=== PATIENT | male | born 1970 | race Caucasian/White ===

== ENCOUNTER 2018-01-25 15:38 | Outpatient (REF) | payer MEDICAID, SELFPAY ==
[2018-01-25 21:06] LABS: Abs Immature Grans 0.02 k/cumm (0.0-0.09); Absolute Basophil Count 0.04 k/cumm (0.0-0.2); Absolute Lymphocyte Count 2.55 k/cumm (1.2-3.4); Absolute Monocyte Count 0.54 k/cumm (0.11-0.7); Absolute Neutrophil Count 5.69 k/cumm (1.2-6.7); Basophils % 0.4; Eosinophils % 2.2; HCT 45.2 % (40.0-50.0); HGB 15.6 g/dL (13.5-17.5); Immature Grans % 0.2; Lymphocytes % 28.2; Mean Corp. HGB Concentration 34.5 g/dL (32.0-36.0); Mean Corpuscular Hemoglobin 33.9 pg (27.0-33.0); Mean Corpuscular Volume 98.3 fL (80-95); Mean Platelet Volume 10.7 fL (8.0-11.0); Platelet Count 277 x1000/uL (130-400); RBC Distribution Width 13.3 % (11.8-14.1); White Blood Cell Count 9.04 k/cumm (4.4-10.8)
[2018-01-25 21:19] LABS: Iron 156 ug/dL (50-175); Total Iron Binding Capacity 385 ug/dL (250-450); Transferrin Sat 41 % (20-55)
[2018-01-25 21:40] LABS: Anion Gap 9.9 mmol/L (3-11); BUN 12 mg/dL (7-18); CO2 27.1 mmol/L (21.0-32.0); Chloride 103 mmol/L (98-107); Ferritin 171 ng/mL (8-388); Glucose 79 mg/dL (70-100); Potassium 4.1 mmol/L (3.5-5.1); Sodium 140 mmol/L (136-145); TSH (W/Ref FT4) 2.66 uIU/mL (0.358-3.74)
[2018-01-25 21:59] LABS: NT-proBNP 13 pg/mL
[2018-01-26 12:54] LABS: Calcium 9.1 mg/dL (8.5-10.1)
[2018-01-27 11:16] LABS: Hepatitis C Ab w Rflx HCV PCR Negative (NEGAT)
== END 2018-01-25 15:58 ==
LOC: NCHCN 15:38
PROVIDERS: PCP Nurse Practitioner Family; Visit Provider Nurse Practitioner Family
DX: F41.8 Other specified anxiety disorders (principal); R42 Dizziness and giddiness; K30 Functional dyspepsia; R06.01 Orthopnea; K76.0 Fatty (change of) liver, not elsewhere classified; M54.5 Low back pain; F17.209 Nicotine dependence, unspecified, with unspecified nicotine-induced disorders; Z11.59 Encounter for screening for other viral diseases
CPT/HCPCS: 80048; 86803; 82728; 83540; 83550; 83880; 84443; 85025

== ENCOUNTER 2018-05-05 10:48 | Outpatient (REF) | payer MEDICAID, SELFPAY ==
[2018-05-05 13:04] LABS: Abs Immature Grans 0.03 k/cumm (0.0-0.09); Absolute Basophil Count 0.04 k/cumm (0.0-0.2); Absolute Lymphocyte Count 2.19 k/cumm (1.2-3.4); Absolute Monocyte Count 0.55 k/cumm (0.11-0.7); Absolute Neutrophil Count 6.31 k/cumm (1.2-6.7); Basophils % 0.4; Eosinophils % 1.1; HCT 46.6 % (40.0-50.0); HGB 16.4 g/dL (13.5-17.5); Immature Grans % 0.3; Lymphocytes % 23.8; Mean Corp. HGB Concentration 35.2 g/dL (32.0-36.0); Mean Corpuscular Hemoglobin 34.9 pg (27.0-33.0); Mean Corpuscular Volume 99.1 fL (80-95); Mean Platelet Volume 10.6 fL (8.0-11.0); Neutrophils % 68.4; Platelet Count 243 x1000/uL (130-400); RBC Distribution Width 12.3 % (11.8-14.1); White Blood Cell Count 9.22 k/cumm (4.4-10.8)
[2018-05-05 13:09] LABS: Glucose 106 mg/dL (70-100)
== END 2018-05-05 11:08 ==
LOC: NCHCN 10:48
PROVIDERS: PCP Nurse Practitioner Family; Visit Provider Nurse Practitioner Family
DX: F10.10 Alcohol abuse, uncomplicated (principal); F41.8 Other specified anxiety disorders
CPT/HCPCS: 82947; 85025

== ENCOUNTER 2018-08-18 21:48 | Outpatient (REF) | payer MEDICAID, SELFPAY ==
[2018-08-18 22:29] LABS: ALT 32 U/L (12-78); AST 16 U/L (15-37); Albumin 3.7 g/dL (3.4-5.0); Alkaline Phosphatase 83 U/L (46-116); Anion Gap 10.7 mmol/L (3-11); BUN 9 mg/dL (7-18); Bilirubin, Total 0.2 mg/dL (0.2-1.0); CO2 27.3 mmol/L (21.0-32.0); CREATININE 1.04 mg/dL (0.70-1.30); Calcium 9.2 mg/dL (8.5-10.1); Chloride 102 mmol/L (98-107); Glucose 88 mg/dL (70-100); Potassium 4.1 mmol/L (3.5-5.1); Sodium 140 mmol/L (136-145); Total Protein 6.9 g/dL (6.4-8.2)
[2018-08-22 11:24] LABS: Hepatitis A Antibody IgM Negative (NEGAT); Hepatitis B Core Antibody Negative (NEGAT); Hepatitis B surface Ag Negative (NEGAT); Hepatitis C Ab w Rflx HCV PCR Negative (NEGAT)
== END 2018-08-18 22:08 ==
LOC: NCHCN 21:48
PROVIDERS: PCP Nurse Practitioner Family; Visit Provider Nurse Practitioner Family
DX: R51 Headache (principal); F17.209 Nicotine dependence, unspecified, with unspecified nicotine-induced disorders; F10.10 Alcohol abuse, uncomplicated; F41.8 Other specified anxiety disorders; K76.0 Fatty (change of) liver, not elsewhere classified
CPT/HCPCS: 80053; 86704; 86709; 86803; 87340

== ENCOUNTER 2018-08-31 01:37 | Outpatient (CLI) | payer MEDICAID, SELFPAY ==
--- NOTE | 2018-08-31 08:10 | DI.US_ITS ---
SYMPTOM/DIAGNOSIS: FATTY LIVER, K76.0, ALCOHOL ABUSE, F10.10 ABDOMEN ULTRASOUND: Comparison is made with 12/25/13. The liver appears enlarged and shows increased echogenicity and decrease through transmission, consistent with hepatic steatosis. The gallbladder is unremarkable, without evidence of stones or wall thickening. No focal liver mass is seen. The pancreas was not well seen. The kidneys are normal in size and parenchymal thickness and show no evidence of hydronephrosis. No ascites is seen. The aorta is normal in diameter. The spleen is normal in size. IMPRESSION: Hepatic steatosis. No liver mass or biliary dilatation.
== END 2018-08-31 01:57 ==
PROVIDERS: PCP Nurse Practitioner Family; Visit Provider Nurse Practitioner Family
DX: K76.0 Fatty (change of) liver, not elsewhere classified (principal); F10.10 Alcohol abuse, uncomplicated
CPT/HCPCS: 76700

== ENCOUNTER 2019-08-04 19:25 | Outpatient (CLI) | payer MEDICAID, SELFPAY ==
[2019-08-05 17:34] LABS: COVID-19 RT-PCR UVMMC Result Negative (Negative)
== END 2019-08-04 19:45 ==
PROVIDERS: PCP Nurse Practitioner Family; Visit Provider Physician Assistant
DX: R05 Cough (principal)
CPT/HCPCS: U0003

== ENCOUNTER 2020-03-29 17:48 | Outpatient (REF) | payer MEDICAID, SELFPAY ==
[2020-03-29 21:23] LABS: Abs Immature Grans 0.05 10^3/uL (0.0-0.06); Absolute Basophil Count 0.07 10^3/uL (0.0-0.2); Absolute Monocyte Count 0.82 10^3/uL (0.1-0.8); Absolute Neutrophil Count 7.38 10^3/uL (1.2-6.7); Basophils % 0.6; Eosinophils % 2.5; HCT 47.5 % (40.0-50.0); HGB 15.6 g/dL (13.5-17.5); Immature Grans % 0.4; Lymphocytes % 27.2; MCH 32.4 pg (27.0-33.0); MCHC 32.8 % (32.0-36.0); MCV 98.8 fL (80-95); MPV 11.5 fL (8.0-11.0); Monocytes % 6.9; Neutrophils % 62.4; Nucleated RBC 0 %; Platelet Count 265 10^3/uL (130-400); RBC 4.81 10^6/uL (4.36-5.78); RDW 12.4 % (11.8-14.1); RDW-SD 45.1 fL; WBC 11.82 10^3/uL (4.4-10.8)
[2020-03-29 21:24] LABS: Absolute Lymphocyte Count 3.22 10^3/uL (1.2-3.4)
[2020-03-29 21:44] LABS: ALT 35 U/L (16-63); AST 16 U/L (15-37); Alkaline Phosphatase 85 U/L (46-116); Anion Gap 8.5 mmol/L (3-11); BUN 19 mg/dL (7-18); Bilirubin, Total 0.2 mg/dL (0.2-1.0); CO2 27.5 mmol/L (21.0-32.0); CREATININE 0.99 mg/dL (0.70-1.30); Calculated LDL 124 mg/dL (<100); Chloride 104 mmol/L (98-107); Cholesterol 192 mg/dL (<200); Glucose 70 mg/dL (74-106); HDL Cholesterol 31 mg/dL (40-60); Potassium 4.4 mmol/L (3.5-5.1); Sodium 140 mmol/L (136-145); TSH (W/Ref FT4) 1.99 uIU/mL (0.36-3.74); Triglyceride 186 mg/dL (<150)
[2020-04-01 10:00] LABS: HIV-1/2 Ag & Ab Screen Negative (Negative)
[2020-04-01 10:58] LABS: Syphilis Serology (RPR) Negative (Negative)
[2020-04-01 11:28] LABS: Hepatitis A Antibody IgM Negative (Negative); Hepatitis B Core Antibody Negative (Negative); Hepatitis B surface Ag Negative (Negative); Hepatitis C Ab w Rflx HCV PCR Negative (Negative)
== END 2020-03-29 18:08 ==
LOC: NCHCN 17:48
PROVIDERS: PCP Nurse Practitioner Family; Visit Provider Nurse Practitioner Family
DX: R20.2 Paresthesia of skin (principal); R11.10 Vomiting, unspecified; R07.9 Chest pain, unspecified; F17.209 Nicotine dependence, unspecified, with unspecified nicotine-induced disorders; K76.0 Fatty (change of) liver, not elsewhere classified; Z11.4 Encounter for screening for human immunodeficiency virus [HIV]; Z11.59 Encounter for screening for other viral diseases
CPT/HCPCS: 80053; 80061; 86704; 86709; 86803; 87340; 87389; 84443; 85025; 86592

== ENCOUNTER 2021-04-16 15:25 | Outpatient (REF) | payer MEDICAID, SELFPAY ==
[2021-04-18 16:31] LABS: COVID-19 RT-PCR UVMMC Result Negative (Negative)
== END 2021-04-16 15:26 | disposition home or self-care (01) ==
LOC: LBN 15:25
PROVIDERS: PCP Nurse Practitioner Family; Visit Provider Physician Assistant Medical
DX: Z20.822 Contact with and (suspected) exposure to COVID-19 (principal); J32.8 Other chronic sinusitis
CPT/HCPCS: U0003

== ENCOUNTER 2022-06-10 01:41 | Outpatient (CLI) | payer OTHER, MEDICAID, SELFPAY ==
--- NOTE | 2022-06-10 08:00 | DI.RAD_ITS ---
Exam(s) XR LUMBAR SPINE COMPLETE EXAM: XR LUMBAR SPINE COMPLETE CLINICAL HISTORY: assess bony alignment,CHRONIC NECK AND BACK PAIN,M54.2,M54.9. TECHNIQUE: 2D digital imaging was performed of the lumbar spine. Five images were obtained. AP, la teral, right oblique, left oblique and L5-S1 spot views were obtained. COMPARISON: CR ABD FLAT UPRIGHT PA CHEST from 03/15/2014 FINDINGS: BONES: No fracture or destructive lesion. There are small endplate osteophytes. Mild degenerative ch anges of the facets are seen at L5-S1. DISKS: Intervertebral disc spaces are maintained. ALIGNMENT: Lumbar spinal alignment is within normal limits. No spondylolysis or spondylolisthesis. SOFT TISSUE: Atherosclerosis. IMPRESSION: Mild lumbar spondylosis. DATA REPOSITORY: RADIATION DOSE DELIVERED:
--- NOTE | 2022-06-10 08:00 | DI.RAD_ITS ---
Exam(s) XR CHEST 2V PA LATERAL EXAM: XR CHEST 2V PA LATERAL CLINICAL HISTORY: CHRONIC COUGH SINCE COVID, r05.3,?? NEW PROCESS TECHNIQUE: 2D digital imaging was performed of the chest. Three images were obtained. PA and later al views were obtained. COMPARISON: CR CHEST 2 VIEWS PA,LAT from 08/30/2017 FINDINGS: MEDIASTINUM: Normal. HEART: Normal. PULMONARY VASCULATURE: Normal. LUNGS: Clear. PLEURAL SPACE: No pleural effusion or pneumothorax. BONE:Within normal limits for the patient's age. OTHER FINDINGS:Normal. IMPRESSION: No acute pulmonary findings. DATA REPOSITORY: RADIATION DOSE DELIVERED:
== END 2022-06-10 02:01 ==
PROVIDERS: PCP Nurse Practitioner Adult Health; Visit Provider Nurse Practitioner Adult Health
DX: R05.3 Chronic cough (principal); M54.59 Other low back pain; M47.816 Spondylosis without myelopathy or radiculopathy, lumbar region; Z87.891 Personal history of nicotine dependence
CPT/HCPCS: 71046; 72110

== ENCOUNTER 2022-06-17 02:42 | Outpatient (CLI) | payer OTHER, MEDICAID, SELFPAY ==
[2022-06-17 08:24] LABS: Abs Immature Grans 0.03 10^3/uL (0.0-0.06); Absolute Basophil Count 0.08 10^3/uL (0.0-0.2); Absolute Lymphocyte Count 2.54 10^3/uL (1.2-3.4); Absolute Monocyte Count 0.59 10^3/uL (0.1-0.8); HCT 46.1 % (40.0-50.0); HGB 15.2 g/dL (13.5-17.5); Immature Grans % 0.4; Lymphocytes % 31.6; MCV 97 fL (80-95); Monocytes % 7.3; Neutrophils % 54.7; Platelet Count 291 10^3/uL (130-400); RBC 4.75 10^6/uL (4.36-5.78); RDW 12.4 % (11.8-14.1); RDW-SD 44.5 fL; WBC 8.04 10^3/uL (4.4-10.8)
[2022-06-17 12:08] LABS: ALT 35 U/L (16-63); AST 17 U/L (15-37); Alkaline Phosphatase 90 U/L (46-116); Anion Gap 7.2 mmol/L (3-11); BUN 11 mg/dL (7-18); Bilirubin, Total 0.3 mg/dL (0.2-1.0); CO2 29.8 mmol/L (21.0-32.0); CREATININE 1.2 mg/dL (0.70-1.30); Calcium 9.4 mg/dL (8.5-10.1); Calculated LDL 133 mg/dL (<100); Chloride 106 mmol/L (98-107); Cholesterol 196 mg/dL (<200); Estimated GFR 72.31 (mL/min/1.73m2); Folate 15.8 ng/mL (8.6-20.0); Glucose 115 mg/dL (74-106); HDL Cholesterol 40 mg/dL (40-60); Potassium 4.3 mmol/L (3.5-5.1); Sodium 143 mmol/L (136-145); Total Protein 7.5 g/dL (6.4-8.2); Triglyceride 119 mg/dL (<150); Vitamin B12 656 pg/mL (193-986)
[2022-06-18 10:11] LABS: HIV-1/2 Ag & Ab Screen Negative (Negative)
[2022-06-18 10:38] LABS: Hepatitis C Ab w Rflx HCV PCR Negative (Negative)
== END 2022-06-17 02:43 | disposition home or self-care (01) ==
LOC: LBO 02:42
PROVIDERS: PCP Nurse Practitioner Adult Health; Visit Provider Nurse Practitioner Adult Health
DX: F10.91 Alcohol use, unspecified, in remission (principal); G47.00 Insomnia, unspecified; Z87.891 Personal history of nicotine dependence
CPT/HCPCS: 36415; 80053; 80061; 86803; 87389; 82607; 82746; 85025

== ENCOUNTER 2022-09-10 07:39 | Day surgery (SDC) | payer OTHER, MEDICAID, SELFPAY ==
--- NOTE | 2022-09-09 22:13 | W.PM.DSUDISC ---
Date of service: 09/10/22 Time of Service: 10:11 Discharge Plan Disposition Patient Disposition: Home Condition: Good Discharge Details Reason For Visit: Screening colonoscopy Attending Provider: Neil Pappas Primary Care Provider: Mary Carmen Mueller Home Meds and New Rx's Prescriptions: Continued celecoxib [Celebrex] 200 mg capsule 200 mg PO DAILY PRN (Reason: pain) Qty: 60 0RF Rx Instructions: Take with food for back pain prn doxepin 3 mg tablet 3 - 6 mg PO QHS PRN (Reason: sleep) Qty: 60 0RF Rx Instructions: Take 30min prior to desired bedtime acetaminophen [Tylenol] 325 MG tablet 650 mg PO Q6H PRN0RF Discontinued bisacodyl [Dulcolax (bisacodyl)] 5 mg tablet,delayed release (DR/EC) 5 mg PO ONCE Qty: 4 0RF Rx Instructions: Take per colonoscopy instructions provided by ordering providers office polyethylene glycol 3350 17 gram/dose powder 17 g PO ONCE Qty: 238 0RF Rx Instructions: Take per colonoscopy instructions provided by ordering providers office Discharge Instructions Instructions: Diverticulosis (GEN), Diverticulosis Diet (GEN), Colorectal Polyps (GEN) Additional Instructions: Fabien, we were able to complete your colonoscopy today without any difficulty. I did find 3 polyps. I removed these completely. I will be in touch when I have the results of the nature of the polyps. Incidentally, you have some mild diverticulosis. We have attached some information here regarding general management of diverticular disease. 1. If tolerated, consume a soft, low fiber diet for 1-2 days. 2[address] Do not drive, drink alcohol, operate machinery, make critical decisions, or do activities that require coordination or balance for 24 hours. 3. Because air was put into your colon during the procedure, expelling air from your rectum (passing gas or farting) is normal. 4. You may not have a bowel movement for 1-3 days because of the colonoscopy prep. This is normal. 5. Go directly to the emergency room if you notice any of the following: Develop chills (warm to touch), or if you have a thermometer and your temperature is above 101 Difficulty breathing or difficultly swallowing Persistent vomiting Severe abdominal pain, other than gas cramps Severe chest pain Black, tarry stools Any bleeding ? exceeding one tablespoon 6. Call your physician if the site where your intravenous was started becomes red, swollen, painful, and warm to touch. 7. Your physician has reviewed your pre-procedure medications. Please continue to take those medications as previously ordered. You will be given specific information/education regarding any changes to your medications before leaving. Activity:: Activity as Tolerated Diet:: As Tolerated Discharge Orders Discharge Orders: Discharge Order (Routine); Ordered 09/09/22 Ordered By: Neil Pappas DS: Diagnosis Discharge Diagnosis (1) Screen for colon cancer: Status: Acute Asessment and Plan: Follow-up on polypectomy results
--- NOTE | 2022-09-09 22:15 | COLE_ITS ---
Date of service: 09/10/22 Time of Service: 10:31 Colonoscopy Report Date of procedure: 09/10/22 Pre-op diagnosis general: Screening colonscopy Post-op diagnosis procedure note: other (Diverticulosis, colorectal polyps) Procedure: Colonoscopy Surgeon: Neil Pappas Anesthesia Type: General:No Airway Estimated blood loss (mL): 10 Pathology: other (Colon polyps at 90 cm, 30 cm, rectal polyp) Complications: None Disposition: same day Indications: Fabien is a 51 year old male who has undergone right hemicolectomy. He is following up for his next screening colonoscopy Prep: Miralax/Dulcolax Procedure Start Time: 09:33 Procedure End Time: 09:57 Retraction Time: 14 Findings: Patent enterocolic anastomosis without pathology, 0.25 cm colon polyp at 90 cm, 0.25 cm colon polyp at 30 cm, 0.5 cm polyp in the rectum (approximately 10 cm from the anal verge) Procedure Description: After the induction of monitored anesthetic care, and with the patient in left lateral decubitus position, I began by performing an external anorectal exam.? Perineum and skin were normal, as was the anal verge.? There was no evidence of external hemorrhoids.? Next, I performed a digital rectal exam.? I did not appreciate any abnormal findings.? Next, I advanced a colonoscope into the rectal vault.? I performed retroflexion.? This appeared normal.? Using insufflation, I then advanced the colonoscope beyond the rectal folds and into the sigmoid colon before advancing towards the proximal colon the quality of the prep was excellent.? The sigmoid colon was quite tortuous, and required some gentle pressure to help advance the colonoscope. We were able to safely navigate across the splenic flexure, and the transverse colon. Approximately 110 cm from the anal verge encountered his previous ileocolic anastomosis. The anastomosis was wide open. It appeared healthy. I did not see any evidence of polyps or tumors in the area of the anastomosis.? I then began withdrawing the colonoscope using repeated irrigation as necessary for full evaluation of the colonic mucosa. Around 90 cm from the anal verge I identified a 0.25 cm polyp. ?It appeared sessile in character. ?I was able to remove this with a cold forcep polypectomy. Similarly, I found another polyp at 30 cm from the anal verge. This was also about 0.25 cm in size, and sessile in character. This was also removed with a cold forcep polypectomy and minimal bleeding. ?Once this was completed, I continued to withdraw the scope and examine the remainder of the colonic mucosa.?Once the scope was withdrawn to the level of the rectum, great care was taken to examine portions of the rectal folds.? Within the rectum, approximately 10 cm from the anal verge was a rectal polyp. I estimate this to be 0.5 cm in size. This was also sessile. I removed this with cold forceps. T here was minimal bleeding here as well. Finally, the scope was withdrawn and the patient was brought to the same-day surgery recovery unit as the anesthetic wore off. ?The findings and instructions were shared with the patient prior to discharge.
[2022-09-10 07:45] VITALS: BP 103/69; PULSE 77; RESP 16; TEMP 36; O2SAT 97
[2022-09-10] MEDS: Lactated Ringers 1,000 ML 80 ML IV (08:25)
[2022-09-10 09:21] VITALS: BMI 28.3
--- NOTE | 2022-09-10 09:21 | W.ANESPRE ---
General Info Date of Service Date Performed: 09/10/22 Height: 6 ft 0.5 in Weight: 96.3 kg Body Mass Index (BMI): 28.3 Surgical Procedure: Operation Date: 09/10/22 09:35 Proposed Procedure Side Surgeon p Colonoscopy Neil Pappas MD Pre-Op Diagnosis Post-Op Diagnosis Screening colonoscopy Meds Allergies and Home Medications Allergies Allergy/AdvReac Type Severity Reaction Status Date / Time clonidine AdvReac Severe Verified 09/09/22 10:41 Home Medication Medication Instructions Recorded acetaminophen 325 mg tablet 650 mg PO Q6H PRN 09/02/17 (Tylenol) celecoxib 200 mg capsule (Celebrex) 200 mg PO DAILY PRN pain #60 caps 07/01/22 doxepin 3 mg tablet 3 - 6 mg PO QHS PRN sleep #60 tabs 09/08/22 Current Visit Medications: Current Medications Generic Name Dose Route Start Last Admin Trade Name Freq PRN Reason Stop Dose Admin Hyoscyamine Sulfate 0.125 mg 09/09/22 22:16 Hyoscyamine 0.125 Mg Sl/Oral/Chew SL 10/09/22 22:15 DIRECTED PRN Ringer's Solution 1,000 mls @ 80 mls/hr 09/10/22 06:00 09/10/22 08:25 IV 10/09/22 23:59 80 mls/hr INFUSION ROJELIO Administration IV Miscellaneous Supplies 1 each 09/10/22 06:00 Iv Access IV 10/09/22 23:59 DIRECTED ROJELIO Ondansetron HCl 4 mg 09/09/22 22:16 Ondansetron 4 Mg/2 Ml Vial IVP 10/09/22 22:15 Q4H PRN PRN Nausea / Vomiting Sodium Chloride 0 ml 09/10/22 06:00 Normal Saline Flush 10 Ml Syr IV 10/09/22 23:59 PRN PRN Sodium Chloride 0 ml 09/10/22 06:00 Normal Saline 10 Ml Vial IJ 10/09/22 23:59 DIRECTED PRN Sterile Water 0 ml 09/10/22 06:00 Water,Injection,Sterile 10 Ml Vial IJ 10/09/22 23:59 DIRECTED PRN PFSH Active Problems Active Problems: Problem Status Onset Code Screen for colon cancer Z12.11 History of nicotine use Z87.891 Insomnia G47.00 Alcohol use disorder in remission ~2019 F10.91 Sessile serrated polyp of colon ~2014 D12.6 Impaired fasting glucose ~06/2022 R73.01 Spondylosis of lumbar spine ~06/2022 M47.816 Medical History Medical History Alcohol abuse Alcohol withdrawal (01/08/14) Per pt. 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 Most recently 10 days ago. Previously with abrupt cessation of alcohol xz 2. Chronic neck and back pain Depression Fatty liver Genital warts Hip pain Homeless Currently living in a somewhat stable living environment - [facility] long term Low back pain Mood disorder Passive suicidal ideations Seizures Per pt. states it was from abruptly stopping alcohol and pt .states he has been sober for 4 years Snoring Tobacco use disorder Surgical History Surgical History EXPLORATORY LAPAROSCOPY (12/19/14) DR.TERRY PINEDA Hemicolectomy (12/19/14) DR.TERRY PINEDA Repair of inguinal hernia Left Tobacco Smoking/Tobacco Use Status: Former Tobacco Use Counseling given: other Alcohol Alcohol Intake: former Details: Current sobriety Substance Use Substance use: Current Sobriety Details: sober since 2018 Vital Signs and Lab Results Vital Signs Most Recent Vital Signs in EMR: Most Recent Vital Signs Temp Pulse Resp BP Pulse Ox 36.0 C L 77 16 103/69 97 09/10/22 07:45 09/10/22 07:45 09/10/22 07:45 09/10/22 07:45 09/10/22 07:45 Lab Results Blood Type / Crossmatch: No Data to Display Complete Blood Count: No Data to Display Complete Metabolic Panel: No Data to Display Liver Function Panel: No Data to Display Coagulation Panel: No Data to Display Cardiac Panel: No Data to Display Arterial Blood Gas: No Data to Display Venous Blood Gas: No Data to Display Pancreas Panel: No Data to Display Thyroid Panel: No Data to Display Infectious Disease: No Data to Display Blood Cultures: No Data to Display Toxicology Panel: No Data to Display Anesthesia Assessment and Plan Anesthesia History Personal History: No History of Anesthesia Complications Family History: No Family History of Anesthesia Complications Exercise Tolerance Exercise Tolerance: Metabolic Equivalents>4 Pertinent Negatives Pertinent Negatives: No Symptoms of GERD, No Major Cardiovascular Symptoms or Complaints and No Major Pulmonary Symptoms or Complaints Cardiac & Pulmonary Exam Cardiac Exam: Normal S1/S2 Heart Sounds Pulmonary Exam: Clear Bilateral Breath Sounds Implantable Cardiac Device Does patient have a Pacemaker or an ICD?: No Airway Exam Known Difficult Airway: No Mallampati Class: 2 Mouth Opening: Normal (> 3cm) Thyromental Distance: Greater than 3 cm Neck Range of Motion: Full ROM Neck Circumference: Normal Teeth Condition: Generalized Poor Dentition ASA Classification ASA Score: ASA 2 Emergency Case?: No NPO Status NPO Status: NPO Clears >2 hours, Solids >8 hours Anesthesia Plan Resuscitation Status: Full Code Anesthesia Technique: General Anesthesia Airway Planned: Natural Airway Monitors Used: Standard Monitors
--- NOTE | 2022-09-10 09:50 | BOWEL_PTH ---
PATIENT: Fabien Finnegan LOC: [facility] U#:[id number] AGE/SX: 51/M ROOM: RE09/10/[address]: Neil Pappas MD : [id number] BED: DIS: 09/10/2022 SPEC #: [id number] RECD: 09/10/22 12:51 STATUS: [facility] #: [id number] WILLY: 09/10/22 09:[address]: Neil Pappas DEPT: Surgical Specimen RECD BY: Nadiya Freitas ENTERED: 09/10/22 12:53 SP TYPE: Bowel OTHR DR: Mary Carmen Mueller APRN Tissues: 1 - BIOPSY BOWEL 2 - BIOPSY BOWEL 3 - BIOPSY BOWEL Procedures: GROSS AND MICRO LEVEL 4 Comments: [id number]
[2022-09-10 10:08] VITALS: BP 127/69; PULSE 61; RESP 18; TEMP 36.4
--- NOTE | 2022-09-10 10:20 | W.ANESPOSTOP ---
Postoperative Evaluation Date, Time and Location Date Performed: 09/10/22 Time Performed: 10:10 Patient Location: Day Surgery Unit Vital Signs Most Recent Imported Vital Signs: Most Recent Vital Signs Temp Pulse Resp BP Pulse Ox 36.4 C L 61 18 127/69 97 09/10/22 10:08 09/10/22 10:08 09/10/22 10:09/10/22 10:09/10/22 07:45 Pain Score Most Recent Pain Score: Most Recent Pain Score Pain Level 0 09/10/22 07:45 Assessment Mental Status: Awake (Alert & Oriented to Patient Baseline) Airway and Respiratory Function: Patent airway with normal (patient baseline) respiratory exam Cardiovascular Function: Hemodynamically Stable Hydration Status: Adequately Hydrated Nausea & Vomiting: No Nausea or Vomiting Pain: Pt. Denies Any Pain Peripheral Nerve Block: Patient did not receive a nerve block
[2022-09-10 10:35] VITALS: BP 106/70; PULSE 58; RESP 18; TEMP 36.5; O2SAT 98
== END 2022-09-10 07:40 | disposition home or self-care (01) ==
PROVIDERS: PCP Nurse Practitioner Adult Health; Visit Provider Surgery
PROC: 0DJD8ZZ Inspection of Lower Intestinal Tract, Via Natural or Artificial Opening Endoscopic (ICD-10-PCS; CPT 45378; principal; 2022-09-10 09:30)
DX: Z12.11 Encounter for screening for malignant neoplasm of colon (principal); D12.8 Benign neoplasm of rectum; K57.30 Diverticulosis of large intestine without perforation or abscess without bleeding; Z90.49 Acquired absence of other specified parts of digestive tract; Z86.010 Personal history of colon polyps; Z98.0 Intestinal bypass and anastomosis status; K63.89 Other specified diseases of intestine
CPT/HCPCS: 45380; 88305; J2001

== ENCOUNTER → 2023-04-07 10:27 | Outpatient (CLI) | payer OTHER, MEDICAID, SELFPAY ==
--- NOTE | 2023-04-07 13:58 | DI.RAD_ITS ---
Exam(s) XR ANKLE LT COMPLETE EXAM: XR ANKLE LT COMPLETE CLINICAL HISTORY: Medial ankle pain s/p trauma 09/2022, M25.572, pes planus M21.42 TECHNIQUE: 2D digital imaging was performed. Three views. COMPARISON: No exams were available for comparison FINDINGS: BONES: No acute fracture is present. No bony destructive lesion is seen. Small plantar calcaneal sp ur. JOINTS:The ankle mortise is normally aligned. SOFT TISSUE: Swelling around the malleoli. IMPRESSION: Soft tissue swelling. Small heel spur. DATA REPOSITORY: RADIATION DOSE DELIVERED:
== END ==
PROVIDERS: PCP Nurse Practitioner Adult Health; Visit Provider Nurse Practitioner Adult Health
DX: M21.41 Flat foot [pes planus] (acquired), right foot (principal); M21.42 Flat foot [pes planus] (acquired), left foot; M25.572 Pain in left ankle and joints of left foot
CPT/HCPCS: 73610

== ENCOUNTER 2023-05-24 14:57 | Outpatient (CLI) | payer OTHER, MEDICAID, SELFPAY ==
--- NOTE | 2023-05-24 13:45 | DI.RAD_ITS ---
Exam(s) XR ANKLE LT 2V EXAM: XR ANKLE LT 2V CLINICAL HISTORY: weight-bearing left ankle - include entire foot la TECHNIQUE: 2D digital imaging was performed. Three views. COMPARISON: CR XR ANKLE LT COMPLETE from 04/07/2023 FINDINGS: BONES: No acute fracture is present. No bony destructive lesion is seen. Plantar calcaneal spur. JOINTS:The ankle mortise is normally aligned. Tibiotalar joint is maintained flattening of the plan tar arch. SOFT TISSUE: Normal. IMPRESSION: Heel spur. DATA REPOSITORY: RADIATION DOSE DELIVERED:
== END 2023-05-24 14:58 | disposition home or self-care (01) ==
LOC: DIORS 14:57
PROVIDERS: PCP Nurse Practitioner Adult Health; Visit Provider Student in an Organized Health Care Education/Training Program
DX: M21.41 Flat foot [pes planus] (acquired), right foot (principal); M21.42 Flat foot [pes planus] (acquired), left foot
CPT/HCPCS: 73600

== ENCOUNTER → 2023-06-02 00:58 | Outpatient (CLI) | payer OTHER, MEDICAID, SELFPAY ==
--- NOTE | 2023-06-02 06:30 | DI.MRI_ITS ---
Exam(s) MR LOWER JOINT LT WO EXAM: MR LOWER JOINT LT WO CLINICAL HISTORY: lt ankle pain, m25.572,flat foot, m21.42 TECHNIQUE: Multiplanar multisequence MRI was performed without intravenous contrast. COMPARISON: CR XR ANKLE LT 2V from 05/24/2023 FINDINGS: SKIN: No evidence of ulcer nor subcutaneous tract. BONES/JOINTS: There appears to be an element of pes planus and hindfoot valgus. No evidence of osseou s tarsal coalition.. No evidence of fracture nor bone contusion. No joint effusion is present. The t alar dome appears unremarkable. The ankle mortise is maintained. There is no evidence of para-artic ular ganglion. LIGAMENTS: The anterior and posterior tibiofibular and calcaneofibular ligaments are intact. The ante rior and posterior talofibular ligaments are intact. the deltoid ligament is intact. SINUS TARSI: There is abnormal stir bright signal within this space but no true disruption of the int erosseous ligaments. Also no evidence of sinus tarsi ganglion cyst MUSCULOTENDINOUS STRUCTURES: Achilles tendon: Mild tendinitis signal. No evidence of tear. Plantar fascia: Unremarkable. No evidence of tear, abnormal thickening, nor abnormal nodularity. Anterior Extensor tendons: Unremarkable. Medial Tendons: Posterior Tibialis: Mild increased signal within the tendon behind the medial malleolus as well as at the level of its insertion onto the navicular tuberosity, consistent with tendinitis. There is also fluid in the tendon sheath consistent with moderate tenosynovitis. There is no high-grade full-thickn ess tear of the tibialis posterior tendon. The navicular tuberosity configuration is that of type 3 which predisposes to posterior tibial tendin opathy. Flexor Digitorum longus: Unremarkable. No tear or tenosynovitis evident. Flexor Hallicus longus: Unremarkable. No tear or tenosynovitis evident. Lateral Tendons: Peroneus longus: Unremarkable. No tear nor tenosynovitis evident. Peroneus brevis:Unremarkable. No tear nor tenosynovitis evident. SOFT TISSUES: There is subcutaneous edema in the medial aspect of the foot in the region of the dista l tibialis posterior tendon. OTHER FINDINGS: Lisfranc ligament appear intact IMPRESSION: 1. Main findings are in the medial aspect of the ankle where there is insertional tendinitis and mode rate tenosynovitis of the tibialis posterior tendon. The coronuate appearance of the navicular tubero sity probably predisposes to the above findings in the posterior tibial tendon. There is associated p es planus and mild hindfoot valgus. 2. There is moderate edema evidence in the sinus tarsi space which is probably related to repetitive stress. 3. Mild tendinitis noted in the Achilles tendon. No evidence of tear. 4. There is mild focal subarticular edema in the proximal-lateral aspect of the lateral cuneiform. Mo st probably related to mild degenerative changes or altered biomechanics. There is no abnormal signal in the adjacent cuboid bone. DATA REPOSITORY:
--- NOTE | 2023-06-02 19:36 | DI.VRAD_ITS ---
PROCEDURE INFORMATION: Exam: MR Left Lower Extremity Joint Without Contrast; Ankle Exam date and time: 06/02/2023 7:56 AM Age: 52 years old Clinical indication: Other: Left ankle pain TECHNIQUE: Imaging protocol: Magnetic resonance imaging of the left lower extremity without contrast. Exam focused on the ankle. COMPARISON: CR XR ANKLE LT 2V 05/24/2023 2:14 PM FINDINGS: Bones/joints: No gross fracture or bone contusion. Pes planus, better confirmed on the comparison weight-bearing radiographs, and suspected mild hindfoot valgus. No hindfoot coalition. Articular surfaces of the mortise joint are well-maintained. Calcaneonavicular ligament intact. LIGAMENTS: Distal tibiofibular syndesmosis: Anterior and posterior distal tibiofibular ligaments are intact. Marginally visualized distal tibiofibular syndesmosis appears intact. Anterior talofibular ligament: Anterior talofibular ligament is intact. Posterior talofibular ligament: Posterior talofibular ligament is intact. Calcaneofibular ligament: Calcaneofibular ligament is intact. Deltoid ligament complex: Deltoid ligament is intact. Anterior fibers of the anterior tibiotalar and tibiocalcaneal components show surrounding T2 hyperintensity, felt to be reactive due to proximity to the posterior tibial tendinitis. Lisfranc ligament: Lisfranc ligamentous complex intact. TENDONS: Flexor tendons of foot: Flexor hallucis longus tendon intact. Flexor digitorum longus tendon intact. Tibialis posterior tendon: The posterior tibial tendon demonstrates moderate fluid surrounding the inframalleolar segment with minimal intrasubstance STIR hyperintensity near its navicular attachment, suggesting insertional tendinitis and possibly a minimal element of interstitial tear. There is a cornuate navicular (type 3 accessory navicular) which might additionally predispose to posterior tibial tendinopathy. Peroneal tendons: Peroneus tendons are intact. Extensor tendons of foot: Extensor tendons are intact. Tibialis anterior tendon: Unremarkable as visualized. Achilles tendon: Achilles tendon demonstrates mild interstitial hyperintensity and mild peritendinous swelling with small volume fluid in the retrocalcaneal bursa consistent with mild changes of tendinitis or low-grade strain, without discrete tear. Tarsal canal (Sinus tarsi): Sinus tarsi demonstrates mild STIR hyperintensity which may be due to low-grade strain or repetitive stress however no disruptions of the cervical or interosseous ligaments are identified. Tarsal tunnel: Unremarkable. Soft tissues: Unremarkable. Plantar fascia: Plantar fascia is normal. Small plantar calcaneal spur. Vasculature: Varicose veins noted in the lateral subcutaneous tissues of the distal lower leg. No gross thrombosed or inflamed venous segments. IMPRESSION: 1. Changes of tendinitis versus low-grade strain or minimal interstitial tear involving the posterior tibial tendon insertional zone. 2. Mild pes planovalgus and cornuate navicular likely further predispose to posterior tibial tendinopathy. 3. Mild distal Achilles tendinitis without discrete tear. 4. Minor edema in the sinus tarsi suggesting low-grade strain or repetitive stress with no evidence of destabilizing ligamentous disruption. 5. Additional nonemergent findings detailed above. Dictated and Authenticated by: Asael Pearl MD. Ordering:TELLY Hastings MD
== END ==
PROVIDERS: PCP Nurse Practitioner Adult Health; Visit Provider Student in an Organized Health Care Education/Training Program
DX: M25.572 Pain in left ankle and joints of left foot (principal); M21.42 Flat foot [pes planus] (acquired), left foot
CPT/HCPCS: 73721

== ENCOUNTER 2023-09-22 09:37 | Outpatient (CLI) | payer OTHER, MEDICAID, SELFPAY ==
[2023-09-22 09:33] LABS: Anion Gap 9.2 mmol/L (3-11); BUN 14 mg/dL (7-18); CO2 27.8 mmol/L (21.0-32.0); CREATININE 1.3 mg/dL (0.70-1.30); Calcium 9.2 mg/dL (8.5-10.1); Chloride 105 mmol/L (98-107); Estimated GFR 64.88 (mL/min/1.73m2); Glucose 121 mg/dL (74-106); Sodium 142 mmol/L (136-145)
[2023-09-22 09:45] LABS: Hemoglobin A1C 5.3 % (<5.7)
== END 2023-09-22 09:38 | disposition home or self-care (01) ==
LOC: LBO 09:38
PROVIDERS: PCP Nurse Practitioner Adult Health; Visit Provider Nurse Practitioner Adult Health
DX: R73.01 Impaired fasting glucose (principal); R39.11 Hesitancy of micturition
CPT/HCPCS: 36415; 80048; 83036

== ENCOUNTER 2024-05-10 14:49 | Outpatient (REF) | payer OTHER, MEDICAID, SELFPAY ==
[2024-05-10 15:28] LABS: Bilirubin Negative (Negative); Blood Trace-intact (Negative); Clarity Clear (Clear); Glucose Negative (Negative); Ketones Negative (Negative); Leukocyte Esterase Negative (Negative); Nitrite Negative (Negative); Specific Gravity 1.015 (1.005-1.025); Urobilinogen 0.2 mg/dL (Up to 0.2)
[2024-05-10 17:25] LABS: Bacteria Negative HPF (Negative); C & S Indicated? No; Casts Negative LPF (Negative); Crystals Negative HPF (Negative); Epithelial Cells Negative HPF (Negative); Mucus Negative (Negative); RBC 0-2 HPF (0-2); WBC Negative HPF (0-5)
== END 2024-05-10 14:50 | disposition home or self-care (01) ==
LOC: LBN 14:49
PROVIDERS: PCP Nurse Practitioner Adult Health; Visit Provider Nurse Practitioner Adult Health
DX: R39.11 Hesitancy of micturition (principal); H91.93 Unspecified hearing loss, bilateral
CPT/HCPCS: 81003; 81015

== ENCOUNTER 2024-05-31 02:35 | Outpatient (CLI) | payer OTHER, MEDICAID, SELFPAY ==
[2024-05-31 09:31] LABS: ALT 27 U/L (16-63); AST 15 U/L (15-37); Albumin 3.9 g/dL (3.4-5.0); Alkaline Phosphatase 94 U/L (46-116); Anion Gap 7.3 mmol/L (3-11); BUN 18 mg/dL (7-18); Bilirubin, Total 0.37 mg/dL (0.2-1.0); CO2 28.7 mmol/L (21.0-32.0); Calculated LDL 135 mg/dL (<100); Chloride 108 mmol/L (98-107); Cholesterol 203 mg/dL (<200); Estimated GFR 88.88 (mL/min/1.73m2); Glucose 102 mg/dL (74-106); HDL Cholesterol 43 mg/dL (40-60); Potassium 4.3 mmol/L (3.5-5.1); Sodium 144 mmol/L (136-145); Total Protein 7.6 g/dL (6.4-8.2); Triglyceride 126 mg/dL (<150)
[2024-05-31 09:39] LABS: Hemoglobin A1C 5.4 % (<5.7)
[2024-05-31 20:18] LABS: PSA, Screening 3.7 ng/mL (<=3.5)
== END 2024-05-31 02:36 | disposition home or self-care (01) ==
LOC: LBO 02:35
PROVIDERS: PCP Nurse Practitioner Adult Health; Referring Provider Nurse Practitioner Adult Health; Visit Provider Nurse Practitioner Adult Health
DX: R73.01 Impaired fasting glucose (principal); G47.00 Insomnia, unspecified; Z13.220 Encounter for screening for lipoid disorders; Z13.1 Encounter for screening for diabetes mellitus; R39.11 Hesitancy of micturition; Z12.5 Encounter for screening for malignant neoplasm of prostate
CPT/HCPCS: 36415; 80053; 80061; 84153; 83036

== ENCOUNTER 2024-07-12 09:49 | Outpatient (CLI) | payer OTHER, MEDICAID, SELFPAY ==
[2024-07-12 18:54] LABS: PSA, Screening 3.8 ng/mL (<=3.5)
== END 2024-07-12 09:50 | disposition home or self-care (01) ==
LOC: LBO 09:50
PROVIDERS: PCP Nurse Practitioner Adult Health; Visit Provider Nurse Practitioner Adult Health
DX: R97.20 Elevated prostate specific antigen [PSA] (principal)
CPT/HCPCS: 36415; 84153

== ENCOUNTER 2024-11-29 16:56 | Outpatient (CLI) | payer OTHER, MEDICAID, SELFPAY ==
[2024-11-30 18:16] LABS: PSA, Diagnostic 4.3 ng/mL (<=3.5)
== END 2024-11-29 16:57 | disposition home or self-care (01) ==
LOC: LBO 16:57
PROVIDERS: PCP Nurse Practitioner Adult Health; Visit Provider Nurse Practitioner Adult Health
DX: R97.20 Elevated prostate specific antigen [PSA] (principal)
CPT/HCPCS: 36415; 84153